=== PATIENT | female | born 1945 | race Hispanic/Latino ===

== ENCOUNTER → 2018-12-03 | Outpatient (CLI) | payer MEDICARE, OTHER ==
[~2018-12-03] MED LIST: ATOR40TA69 PO; CARV12.511 PO; DONE10TA36 PO; FAMO40TA7 PO; METF-444 PO; MONT10TA24 PO; PANT40TA25 PO; SUCR1TAB2 PO
== END | disposition home or self-care (01) ==
LOC: RAH 10:27
PROVIDERS: ATTEND Internal Medicine Critical Care Medicine
DX: M47.27 Other spondylosis with radiculopathy, lumbosacral region (principal); M48.061 Spinal stenosis, lumbar region without neurogenic claudication; M89.38 Hypertrophy of bone, other site
CPT/HCPCS: 72148

== ENCOUNTER → 2019-02-19 | Outpatient (CLI) | payer OTHER ==
[~2019-02-19] MED LIST changes: +CLOP75TA32 PO; -DONE10TA36 PO; +DONE10TA43 PO; -FAMO40TA7 PO; +GABA-529 PO; +LOSA50TA64 PO; -METF-444 PO; -MONT10TA24 PO; -SUCR1TAB2 PO
== END | disposition home or self-care (01) ==
LOC: RAH 11:38
PROVIDERS: ATTEND Internal Medicine Cardiovascular Disease
DX: Z13.6 Encounter for screening for cardiovascular disorders (principal); I70.0 Atherosclerosis of aorta; M47.814 Spondylosis without myelopathy or radiculopathy, thoracic region
CPT/HCPCS: 75571

== ENCOUNTER → 2019-05-02 | Outpatient (CLI) | payer OTHER ==
--- NOTE | 2019-04-12 11:01 | NUR ---
PT IS ADM[place] [facility] [place]FORE WAS A NO SHOW TO THIS OUTPT APPOINTMENT
[~2019-05-02] VITALS: Ht 152.4 cm; Wt 77.1 kg
[~2019-05-02] MED LIST changes: +AMINOPHYLLINE 250MG/10 ML VIAL IV SCH; +AMLO5TAB9 PO; +AMOX-426 PO; -ATOR40TA69 PO; -CARV12.511 PO; +CARV25TA PO; -GABA-529 PO; +LIDOCAINE HCL-MPF 2% 5ML VIAL ONE; +LOSA100T58 PO; -LOSA50TA64 PO; +POLY17PO4 PO; +PROPOFOL 10 MG/ML 20ML VIAL IV ONE; +REGADENOSON 0.4 MG/5 ML PF SYG IVP SCH
== END | disposition home or self-care (01) ==
LOC: SHCH 08:06
PROVIDERS: ATTEND Internal Medicine Cardiovascular Disease
DX: I25.119 Atherosclerotic heart disease of native coronary artery with unspecified angina pectoris (principal); R07.9 Chest pain, unspecified
CPT/HCPCS: 78452; 93017; 96374; A9500 ×2; J2785; J0280; J2704; J3490

== ENCOUNTER → 2019-10-28 | Outpatient (CLI) | payer OTHER ==
[~2019-10-28] MED LIST changes: -AMINOPHYLLINE 250MG/10 ML VIAL IV SCH; -LIDOCAINE HCL-MPF 2% 5ML VIAL ONE; -PROPOFOL 10 MG/ML 20ML VIAL IV ONE; -REGADENOSON 0.4 MG/5 ML PF SYG IVP SCH
--- NOTE | 2019-10-28 21:30 | NUR ---
PATIENT UNABLE TO RECALL MEDICATIONS SHE TAKES BUT KNOWS WHAT THEY ARE FOR: 3 BLOOD PRESSURE MEDS, CHOLESTEROL, WATER PILL, BLOOD CIRCULATION, MEMORY, BONES AND STOMACH MEDICATIONS. Addendum: 10/29/19 at 0046 by SANGEETA MEZA Amended: Links added.
== END | disposition home or self-care (01) ==
LOC: SHCH 20:17
PROVIDERS: ATTEND Internal Medicine Cardiovascular Disease
DX: G47.33 Obstructive sleep apnea (adult) (pediatric) (principal)
CPT/HCPCS: 95810

== ENCOUNTER 2020-05-01 12:20 | Inpatient (IN) | payer OTHER ==
[~2020-05-01] VITALS: Ht 147.3 cm; Wt 70.4 kg
[~2020-05-01 12:20] MED LIST changes: +AMLO-257 PO; -AMLO5TAB9 PO; -PANT40TA25 PO; +PANT40TA54 PO
[2020-05-01] MEDS ORDERED: CEFTRIAXONE 1G VIAL ONE (12:42)
[2020-05-01] MEDS ORDERED: AZITHROMYCIN 250 MG TABLET PO ONE (12:42)
[2020-05-01] MEDS ORDERED: DEXAMETHASONE SOD PHOSPHATE 10MG/ML 1ML VIAL ONE (12:42)
[2020-05-01 12:53] LABS: ABG HCO3 16.9 mmol/L (21.0-28.0); ABG OXYGEN SATURATION 89.3 % (95.0-99.0); ABG PCO2 27 mmHg (32-45)
[2020-05-01] MEDS ORDERED: ALBUTEROL INHALER 90MCG/INH IH ONE (13:06)
[2020-05-01 13:11] LABS: HEMATOCRIT 41.5 % (36-48); LYMPHOCYTES % (AUTO) 12.2 % (21.0-51.0); MEAN CORPUSCULAR HEMOGLOBIN 30.7 pg (27.0-33.0); MEAN CORPUSCULAR VOLUME 90.4 fL (79-99); MONOCYTES % (AUTO) 5.7 % (3.0-13.0); NEUTROPHILS % (AUTO) 81.5 % (40.0-77.0); PLATELET COUNT (AUTO) 163 K/uL (130-400); RED BLOOD CELL COUNT(AUTO) 4.59 MIL/uL (4.00-5.50); RED CELL DISTRIBUTION WIDTH 14.1 % (11.0-15.5); WHITE BLOOD COUNT (AUTO) 5.4 K/uL (4.8-10.8)
[2020-05-01 13:30] LABS: INR 1.07 (0.85-1.15); PROTHROMBIN TIME 11.4 SEC (9.6-11.6)
[2020-05-01 13:31] LABS: PARTIAL THROMBOPLASTIN TIME 29.1 SEC (26.3-35.5)
[2020-05-01 13:38] LABS: B-TYPE NATRIURETIC PEPTIDE 157 pg/mL (0-100)
[2020-05-01 13:41] LABS: CREATININE 0.6 mg/dL (0.5-1.5); POTASSIUM 4.2 mmol/L (3.5-5.1)
[2020-05-01 13:46] LABS: BILIRUBIN,TOTAL 0.6 mg/dL (0.2-1.0); TOTAL PROTEIN, SERUM 7.5 g/dL (6.0-8.3)
[2020-05-01 14:46] LABS: APPEARANCE,URINE Clear (CLEAR); BILIRUBIN,URINE Negative (NEGATIVE); COLOR,URINE Yellow (YELLOW); GLUCOSE, URINE (UA) Negative (NEGATIVE); KETONES,URINE >=80 mg/dL (NEGATIVE); LEUKOCYTE ESTERASE ,URINE Negative (NEGATIVE); NITRATE,URINE Negative (NEGATIVE); OCCULT BLOOD,URINE Negative (NEGATIVE); PH,URINE 5.5 (5.0-8.0); PROTEIN,URINE 300 mg/dL (NEGATIVE)
[2020-05-01 15:19] LABS: BACTERIA,URINE Few /HPF (None Seen); RBC,URINE None Seen /HPF (0-1); WBC,URINE 0-1 /HPF (0-1)
[2020-05-01] MEDS ORDERED: ACETAMINOPHEN 325 MG TAB PO PRN ×2 (15:30)
[2020-05-01] MEDS ORDERED: ERGOCALCIFEROL (VITAMIN D2) 50,000 UNIT CAPSULE PO ONE (15:30)
[2020-05-01] MEDS ORDERED: ONDANSETRON 4MG INJ IV PRN (15:30)
[2020-05-01] MEDS: DEXAMETHASONE SOD PHOSPHATE 4 MG/ML 1ML VIAL IVP SCH (15:30)
[2020-05-01] MEDS ORDERED: AZITHROMYCIN 500MG+NS 250ML 250 ML IV SCH (15:30)
[2020-05-01] MEDS ORDERED: CEFTRIAXONE 1G VIAL IVP SCH (15:30)
[2020-05-01] MEDS ORDERED: MORPHINE 2 MG SYG IV PRN (15:30)
[2020-05-01 15:50] LABS: HEMOGLOBIN A1C 6.3 % (4.0-6.0)
[2020-05-01] MEDS ORDERED: ERGOCALCIFEROL (VITAMIN D2) 50,000 UNIT CAPSULE ONE (17:22)
[2020-05-01] MEDS ORDERED: ACETAMINOPHEN 325 MG TAB ONE (17:22)
[2020-05-01] MEDS ORDERED: BENZONATATE 100 MG CAPSULE PO SCH (21:00)
[2020-05-01] MEDS: CARVEDILOL 25 MG TABLET PO SCH (21:00)
[2020-05-01] MEDS ORDERED: ACETYLCYSTEINE 600 MG CAPSULE PO SCH (21:00)
[2020-05-01] MEDS ORDERED: FAMOTIDINE 20MG VIAL IV SCH (21:00)
[2020-05-01] MEDS ORDERED: ACETYLCYSTEINE 600 MG CAPSULE ONE (22:04)
[2020-05-01] MEDS ORDERED: BENZONATATE 100 MG CAPSULE PO ONE (22:05)
[2020-05-01] MEDS ORDERED: FAMOTIDINE 20MG VIAL IV ONE (22:05)
[2020-05-02] MEDS ORDERED: DILTIAZEM 50MG VIAL IV ONE (01:48)
[2020-05-02] MEDS ORDERED: DILTIAZEM 125 MG/25 ML INJ IV ONE (01:52)
[2020-05-02] MEDS ORDERED: 0.9%NACL 100ML 100 ML IV ONE (01:53)
[2020-05-02 04:43] LABS: BASOPHILS % (AUTO) 0.1 % (0.0-5.0); EOSINOPHILS % (AUTO) 1.9 % (0.0-8.0); HEMATOCRIT 36.6 % (36-48); MEAN CORPUSCULAR HEMOGLOBIN 30.6 pg (27.0-33.0); MEAN CORPUSCULAR HGB CONC 33.9 g/dL (32.0-36.0); MEAN CORPUSCULAR VOLUME 90.4 fL (79-99); MONOCYTES % (AUTO) 5.2 % (3.0-13.0); NEUTROPHILS % (AUTO) 82.3 % (40.0-77.0); PLATELET COUNT (AUTO) 172 K/uL (130-400); RED BLOOD CELL COUNT(AUTO) 4.05 MIL/uL (4.00-5.50); RED CELL DISTRIBUTION WIDTH 14.2 % (11.0-15.5); WHITE BLOOD COUNT (AUTO) 7.5 K/uL (4.8-10.8)
[2020-05-02 05:07] LABS: ALBUMIN 2.8 g/dL (3.5-5.0); BILIRUBIN,TOTAL 0.4 mg/dL (0.2-1.0); CREATININE 0.6 mg/dL (0.5-1.5); CRP QUANTITATIVE 55.8 mg/L (0.00-9.0); POTASSIUM 3.1 mmol/L (3.5-5.1); TOTAL PROTEIN, SERUM 6.8 g/dL (6.0-8.3)
[2020-05-02] MEDS ORDERED: ASCORBIC ACID 500 MG TAB ONE (08:19)
[2020-05-02] MEDS ORDERED: CARVEDILOL 25 MG TABLET PO ONE (08:19)
[2020-05-02] MEDS ORDERED: ACETYLCYSTEINE 600 MG CAPSULE ONE (08:20)
[2020-05-02] MEDS ORDERED: AMLODIPINE 5 MG TAB ONE (08:20)
[2020-05-02] MEDS ORDERED: BENZONATATE 100 MG CAPSULE PO ONE (08:20)
[2020-05-02] MEDS ORDERED: ZINC SULFATE 220 CAPSULE ONE (08:20)
[2020-05-02] MEDS ORDERED: ENOXAPARIN SODIUM 40 MG/0.4 ML SYRINGE SQ ONE (08:20)
[2020-05-02] MEDS ORDERED: LOSARTAN 50 MG TABLET ONE (08:21)
[2020-05-02] MEDS ORDERED: FAMOTIDINE 20MG VIAL IV ONE (08:21)
[2020-05-02] MEDS ORDERED: ACETAMINOPHEN 325 MG TAB ONE (08:21)
[2020-05-02] MEDS: LOSARTAN 100 MG TABLET PO SCH (09:00)
[2020-05-02] MEDS ORDERED: ENOXAPARIN SODIUM 40 MG/0.4 ML SYRINGE SQ SCH ×2 (09:00)
[2020-05-02] MEDS ORDERED: ONDANSETRON 4MG INJ ONE (09:00)
[2020-05-02] MEDS: ASCORBIC ACID 500 MG TAB PO SCH (09:00)
[2020-05-02] MEDS: ZINC SULFATE 220 CAPSULE PO SCH (09:00)
[2020-05-02] MEDS: AMLODIPINE 5 MG TAB PO SCH (09:00)
[2020-05-02] MEDS: CARVEDILOL 25 MG TABLET PO SCH ×2 (09:00→21:20)
[2020-05-02] MEDS ORDERED: 0.9%NACL 50ML 50 ML IV ONE (11:57)
[2020-05-02] MEDS ORDERED: BENZONATATE 100 MG CAPSULE PO PRN (13:30)
[2020-05-02] MEDS ORDERED: POTASSIUM CHLORIDE 20MEQ/100ML 100 ML IV PRN ×2 (14:15)
[2020-05-02] MEDS ORDERED: POTASSIUM CHLORIDE 10% ELIXIR 20 MEQ/15 ML UDCUP PO PRN (14:15)
[2020-05-02] MEDS ORDERED: PROMETHAZINE HCL 25 MG/ML 1ML AMPULE IM PRN (15:15)
[2020-05-02] MEDS: DEXAMETHASONE SOD PHOSPHATE 4 MG/ML 1ML VIAL IVP SCH (16:14)
[2020-05-02 18:00] VITALS: BP 96/47
[2020-05-02 19:00] VITALS: BP 102/57
[2020-05-02] MEDS ORDERED: FAMOTIDINE 20MG TAB PO SCH (21:00)
[2020-05-02] MEDS: ENOXAPARIN SODIUM 30 MG/0.3 ML SQ SCH (21:21)
[2020-05-02 23:00] VITALS: BP 93/59
[2020-05-03] VITALS (7 sets, daily range): BP systolic 104–129; BP diastolic 43–67
[2020-05-03 05:57] LABS: HEMATOCRIT 35.2 % (36-48); LYMPHOCYTES % (AUTO) 6.1 % (21.0-51.0); MEAN CORPUSCULAR HEMOGLOBIN 30.4 pg (27.0-33.0); MEAN CORPUSCULAR HGB CONC 33.2 g/dL (32.0-36.0); MEAN CORPUSCULAR VOLUME 91.4 fL (79-99); MONOCYTES % (AUTO) 3.8 % (3.0-13.0); NEUTROPHILS % (AUTO) 89.5 % (40.0-77.0); PLATELET COUNT (AUTO) 197 K/uL (130-400); RED BLOOD CELL COUNT(AUTO) 3.85 MIL/uL (4.00-5.50); RED CELL DISTRIBUTION WIDTH 14.5 % (11.0-15.5)
[2020-05-03 06:24] LABS: ALBUMIN 2.7 g/dL (3.5-5.0); BILIRUBIN,TOTAL 0.3 mg/dL (0.2-1.0); CRP QUANTITATIVE 30.6 mg/L (0.00-9.0); POTASSIUM 3.5 mmol/L (3.5-5.1); TOTAL PROTEIN, SERUM 6.3 g/dL (6.0-8.3)
[2020-05-03] MEDS: KCL 20 MEQ ERTAB PO PRN ×2 (06:50→08:30)
[2020-05-03] MEDS ORDERED: PHARMACY COMMUNICATION**REMDESIVIR ORDER MISC SCH (08:15)
[2020-05-03] MEDS: CEFTRIAXONE 1G VIAL IVP SCH (08:27)
[2020-05-03] MEDS: CARVEDILOL 25 MG TABLET PO SCH (08:29)
[2020-05-03] MEDS: ZINC SULFATE 220 CAPSULE PO SCH (08:29)
[2020-05-03] MEDS: LOSARTAN 100 MG TABLET PO SCH (08:30)
[2020-05-03] MEDS: ASCORBIC ACID 500 MG TAB PO SCH (08:30)
[2020-05-03] MEDS: AMLODIPINE 5 MG TAB PO SCH (08:30)
[2020-05-03] MEDS: ENOXAPARIN SODIUM 30 MG/0.3 ML SQ SCH ×2 (08:31→21:51)
[2020-05-03] MEDS: DEXAMETHASONE SOD PHOSPHATE 4 MG/ML 1ML VIAL IVP SCH (15:17)
[2020-05-03] MEDS: CARVEDILOL 12.5 MG TABLET PO SCH (21:51)
[2020-05-04 03:30] VITALS: BP 120/62
[2020-05-04 06:26] LABS: HEMATOCRIT 36.3 % (36-48); LYMPHOCYTES % (AUTO) 6.9 % (21.0-51.0); MEAN CORPUSCULAR HEMOGLOBIN 30.8 pg (27.0-33.0); MEAN CORPUSCULAR HGB CONC 33.1 g/dL (32.0-36.0); MEAN CORPUSCULAR VOLUME 93.1 fL (79-99); MONOCYTES % (AUTO) 6.9 % (3.0-13.0); NEUTROPHILS % (AUTO) 85.4 % (40.0-77.0); PLATELET COUNT (AUTO) 208 K/uL (130-400); RED CELL DISTRIBUTION WIDTH 14.6 % (11.0-15.5); WHITE BLOOD COUNT (AUTO) 7.9 K/uL (4.8-10.8)
[2020-05-04 06:42] LABS: ALBUMIN 2.8 g/dL (3.5-5.0); BILIRUBIN,TOTAL 0.3 mg/dL (0.2-1.0); CREATININE 0.9 mg/dL (0.5-1.5); CRP QUANTITATIVE 17.5 mg/L (0.00-9.0); MAGNESIUM 2.2 mg/dL (1.80-2.40); POTASSIUM 4.1 mmol/L (3.5-5.1); TOTAL PROTEIN, SERUM 6.5 g/dL (6.0-8.3)
[2020-05-04 08:30] VITALS: BP 137/70
[2020-05-04] MEDS: CEFTRIAXONE 1G VIAL IVP SCH (09:12)
[2020-05-04] MEDS: CARVEDILOL 12.5 MG TABLET PO SCH (09:13)
[2020-05-04] MEDS: AMLODIPINE 5 MG TAB PO SCH (09:14)
[2020-05-04] MEDS: ZINC SULFATE 220 CAPSULE PO SCH (09:14)
[2020-05-04] MEDS: ASCORBIC ACID 500 MG TAB PO SCH (09:14)
[2020-05-04] MEDS: ENOXAPARIN SODIUM 30 MG/0.3 ML SQ SCH ×2 (09:15→20:59)
[2020-05-04 12:49] VITALS: BP 128/70
[2020-05-04] MEDS: DEXAMETHASONE SOD PHOSPHATE 4 MG/ML 1ML VIAL IVP SCH (14:07)
[2020-05-04 16:30] VITALS: BP 134/69
[2020-05-04 20:06] VITALS: BP 131/61
[2020-05-04] MEDS: CARVEDILOL 6.25 MG TABLET PO SCH (20:59)
[2020-05-05] VITALS (7 sets, daily range): BP systolic 116–159; BP diastolic 50–71
[2020-05-05 05:39] LABS: HEMATOCRIT 35.3 % (36-48); LYMPHOCYTES % (AUTO) 7.9 % (21.0-51.0); MEAN CORPUSCULAR HEMOGLOBIN 30.5 pg (27.0-33.0); MEAN CORPUSCULAR HGB CONC 33.1 g/dL (32.0-36.0); MEAN CORPUSCULAR VOLUME 92.2 fL (79-99); MONOCYTES % (AUTO) 7.9 % (3.0-13.0); NEUTROPHILS % (AUTO) 83.6 % (40.0-77.0); PLATELET COUNT (AUTO) 214 K/uL (130-400); RED BLOOD CELL COUNT(AUTO) 3.83 MIL/uL (4.00-5.50); RED CELL DISTRIBUTION WIDTH 14.5 % (11.0-15.5); WHITE BLOOD COUNT (AUTO) 7.1 K/uL (4.8-10.8)
[2020-05-05 06:31] LABS: ALBUMIN 2.7 g/dL (3.5-5.0); BILIRUBIN,TOTAL 0.3 mg/dL (0.2-1.0); CREATININE 0.7 mg/dL (0.5-1.5); CRP QUANTITATIVE 11.6 mg/L (0.00-9.0)
[2020-05-05] MEDS: ASCORBIC ACID 500 MG TAB PO SCH (08:43)
[2020-05-05] MEDS: AMLODIPINE 5 MG TAB PO SCH (08:43)
[2020-05-05] MEDS: CEFTRIAXONE 1G VIAL IVP SCH (08:43)
[2020-05-05] MEDS: ZINC SULFATE 220 CAPSULE PO SCH (08:43)
[2020-05-05] MEDS: ENOXAPARIN SODIUM 30 MG/0.3 ML SQ SCH (08:43)
[2020-05-05] MEDS: CARVEDILOL 6.25 MG TABLET PO SCH ×2 (08:44→20:21)
[2020-05-05] MEDS: DEXAMETHASONE SOD PHOSPHATE 4 MG/ML 1ML VIAL IVP SCH (16:00)
[2020-05-05] MEDS: ENOXAPARIN SODIUM 80 MG/0.8 ML SQ SCH (20:21)
[2020-05-06] VITALS (7 sets, daily range): BP systolic 130–158; BP diastolic 62–93
[2020-05-06 04:59] LABS: HEMATOCRIT 35.8 % (36-48); LYMPHOCYTES % (AUTO) 6.9 % (21.0-51.0); MEAN CORPUSCULAR HEMOGLOBIN 30.2 pg (27.0-33.0); MEAN CORPUSCULAR HGB CONC 33.2 g/dL (32.0-36.0); MEAN CORPUSCULAR VOLUME 90.9 fL (79-99); MONOCYTES % (AUTO) 7.7 % (3.0-13.0); PLATELET COUNT (AUTO) 220 K/uL (130-400); RED BLOOD CELL COUNT(AUTO) 3.94 MIL/uL (4.00-5.50); RED CELL DISTRIBUTION WIDTH 13.8 % (11.0-15.5); WHITE BLOOD COUNT (AUTO) 5.7 K/uL (4.8-10.8)
[2020-05-06 05:27] LABS: ALBUMIN 2.7 g/dL (3.5-5.0); BILIRUBIN,TOTAL 0.4 mg/dL (0.2-1.0); CREATININE 0.6 mg/dL (0.5-1.5); CRP QUANTITATIVE 7.9 mg/L (0.00-9.0); POTASSIUM 3.7 mmol/L (3.5-5.1); TOTAL PROTEIN, SERUM 6.1 g/dL (6.0-8.3)
[2020-05-06] MEDS: KCL 20 MEQ ERTAB PO PRN (06:12)
[2020-05-06] MEDS: ZINC SULFATE 220 CAPSULE PO SCH (08:52)
[2020-05-06] MEDS: AMLODIPINE 5 MG TAB PO SCH (08:52)
[2020-05-06] MEDS: ASCORBIC ACID 500 MG TAB PO SCH (08:52)
[2020-05-06] MEDS: CEFTRIAXONE 1G VIAL IVP SCH (08:53)
[2020-05-06] MEDS: CARVEDILOL 6.25 MG TABLET PO SCH ×2 (08:53→22:04)
[2020-05-06] MEDS: ENOXAPARIN SODIUM 80 MG/0.8 ML SQ SCH ×2 (08:53→22:05)
[2020-05-06] MEDS: DEXAMETHASONE SOD PHOSPHATE 4 MG/ML 1ML VIAL IVP SCH (15:13)
[2020-05-07 03:42] VITALS: BP 152/64
[2020-05-07 05:29] LABS: HEMATOCRIT 36.7 % (36-48); LYMPHOCYTES % (AUTO) 6.8 % (21.0-51.0); MEAN CORPUSCULAR HEMOGLOBIN 30.7 pg (27.0-33.0); MEAN CORPUSCULAR HGB CONC 33.5 g/dL (32.0-36.0); MEAN CORPUSCULAR VOLUME 91.5 fL (79-99); MONOCYTES % (AUTO) 10.8 % (3.0-13.0); PLATELET COUNT (AUTO) 225 K/uL (130-400); RED BLOOD CELL COUNT(AUTO) 4.01 MIL/uL (4.00-5.50); RED CELL DISTRIBUTION WIDTH 13.9 % (11.0-15.5); WHITE BLOOD COUNT (AUTO) 5.9 K/uL (4.8-10.8)
[2020-05-07 05:45] LABS: ALBUMIN 2.7 g/dL (3.5-5.0); BILIRUBIN,TOTAL 0.5 mg/dL (0.2-1.0); CREATININE 0.6 mg/dL (0.5-1.5); CRP QUANTITATIVE 6.6 mg/L (0.00-9.0); POTASSIUM 3.9 mmol/L (3.5-5.1); TOTAL PROTEIN, SERUM 6.1 g/dL (6.0-8.3)
[2020-05-07] MEDS: ENOXAPARIN SODIUM 80 MG/0.8 ML SQ SCH (08:26)
[2020-05-07] MEDS: CARVEDILOL 6.25 MG TABLET PO SCH (08:27)
[2020-05-07] MEDS: AMLODIPINE 5 MG TAB PO SCH (08:28)
[2020-05-07] MEDS: ZINC SULFATE 220 CAPSULE PO SCH (08:28)
[2020-05-07] MEDS: CEFTRIAXONE 1G VIAL IVP SCH (08:28)
[2020-05-07] MEDS: ASCORBIC ACID 500 MG TAB PO SCH (08:28)
[2020-05-07 08:41] VITALS: BP 151/75
[2020-05-07 08:43] VITALS: BP 151/75
[2020-05-07 12:07] VITALS: BP 115/57
[2020-05-07 12:09] VITALS: BP 115/57
[2020-05-07] MEDS: DEXAMETHASONE SOD PHOSPHATE 4 MG/ML 1ML VIAL IVP SCH (15:33)
== END 2020-05-07 15:55 | DRG 177 ==
LOC: EDH 12:20 → EDHIP 15:20 → 2DH 05-02 12:57
PROVIDERS: ADMIT Hospitalist; ATTEND Hospitalist
PROC: XW13325 Transfusion of Convalescent Plasma (Nonautologous) into Peripheral Vein, Percutaneous Approach, New Technology Group 5 (ICD-10-PCS; principal; 2020-05-01)
DX: U07.1 COVID-19 (principal); J96.01 Acute respiratory failure with hypoxia; J12.89 Other viral pneumonia; J44.0 Chronic obstructive pulmonary disease with (acute) lower respiratory infection; E66.9 Obesity, unspecified; E78.00 Pure hypercholesterolemia, unspecified; I10 Essential (primary) hypertension; R00.1 Bradycardia, unspecified; I25.10 Atherosclerotic heart disease of native coronary artery without angina pectoris; Z82.3 Family history of stroke; Z82.49 Family history of ischemic heart disease and other diseases of the circulatory system; Z83.3 Family history of diabetes mellitus; Z80.0 Family history of malignant neoplasm of digestive organs; Z90.49 Acquired absence of other specified parts of digestive tract; Z88.6 Allergy status to analgesic agent; Z68.32 Body mass index [BMI] 32.0-32.9, adult
CPT/HCPCS: 36415; 36600; 71045; 80053; 81001; 82550; 82728; 82803; 82948; 83036; 83605; 83615; 83735; 83880; 84145; 84484; 85025; 85378; 85610; 85730; 86140; 86850; 86900; 86901; 86927; 87040; 87426; 87804; 87880; 93005; 94760; 97039; 99291; A4606; G0378; J0696; J1100; J1650; J2405; J3480; J3490